=== PATIENT | female | born 1955 | race Caucasian/White ===

== ENCOUNTER 2019-02-27 07:30 | Inpatient (IN) ==
--- NOTE | 2019-02-20 08:18 | EKG Report ---
Test Performed on : 02/20/2019 08:14:47 AM Test Reason : PAT Blood Pressure : / mmHG Vent. Rate : 084 BPM Atrial Rate : 084 BPM P-R Int : 130 ms QRS Dur : 096 ms QT Int : 400 ms P-R-T Axes : 000 162 184 degrees QTc Int : 472 ms Sinus rhythm. with fusion complexes and premature atrial complexes. Right axis deviation ST & T wave abnormality, consider anterolateral ischemia Abnormal ECG No previous ECGs available Confirmed by Vesta Norman MD ([id number]) on 02/20/2019 12:26:01 PM
[2019-02-20 08:36] LABS: URINE SOURCE CLEAN CATCH
[2019-02-20 09:02] LABS: BILIRUBIN URINE NEGATIVE (NEGATIVE); BLOOD URINE NEGATIVE (NEGATIVE); COLOR YELLOW; GLUCOSE URINE NEGATIVE (NEGATIVE); KETONE URINE NEGATIVE (NEGATIVE); PH URINE 8.5; SP GRAVITY URINE 1.015; TURBIDITY URINE CLEAR (CLEAR)
[2019-02-20 09:03] LABS: LEUKOCYTES URINE NEGATIVE (NEGATIVE); NITRITE URINE NEGATIVE (NEGATIVE); PROTEIN URINE NEGATIVE (NEGATIVE); UROBILINOGEN URINE NORMAL (NORMAL)
[2019-02-20 09:05] LABS: UR EPITHELIAL CELLS <10 /HPF (<10); URINE BACTERIA NEGATIVE /HPF; URINE RBC <10 /HPF (<10); URINE WBC <10 /HPF (<10)
[2019-02-20 09:07] LABS: BASO# 0.03 X1000 (0.0-0.2); BASO% 0.3 % (0.0-0.8); EOS# 0.15 X1000 (0.0-0.7); EOS% 1.5 % (0.0-10.0); HEMATOCRIT 44.7 % (37.0-47.0); HEMOGLOBIN 15.4 g/dL (12.0-16.0); IMM GRAN# 0.03 X1000 (0.0-0.04); IMM GRAN% 0.3 % (0.0-0.5); INR 0.92; LYMPH% 26.6 % (20.5-51.1); MCH 30.8 PG (27-31); MCHC 34.5 g/dL (33-37); MCV 89.4 FL (81-99); MONO% 8.9 % (1.7-9.3); MPV 11.3 FL (7.4-10.4); NEUT# 6.35 X1000 (1.4-6.5); NEUT% 62.4 % (42.2-75.2); PLT 348 X1000 (130-400); PROTIME 12.5 Seconds (11.0-16.0); RDW 12.7 % (11.5-14.5); WBC 10.16 X1000 (4.8-10.8)
[2019-02-20 09:08] LABS: PTT 28.3 Seconds (22.3-41.8)
[2019-02-20 09:22] LABS: AGAP 13; BUN 15 mg/dL (8-22); CALCIUM 10.1 mg/dL (8.8-10.2); CHLORIDE 95 mmol/L (98-107); COSMO 282; CREATININE 0.7 mg/dL (0.5-0.9); ESTIMATED GFR > 60; GLUCOSE 105 mg/dL (70-104); POTASSIUM 3.3 mmol/L (3.5-5.1); SODIUM 141 mmol/L (136-145); TCO2 33 mmol/L (25-35)
[2019-02-27] MEDS ORDERED: FENTANYL ONE (07:34)
[2019-02-27] MEDS ORDERED: DIPRIVAN 1% ONE (07:34)
[2019-02-27] MEDS ORDERED: ZOFRAN ONE (07:35)
[2019-02-27] MEDS ORDERED: REGLAN ONE (07:59)
[2019-02-27] MEDS ORDERED: PEPCID ONE (07:59)
[2019-02-27] MEDS ORDERED: COLACE ONE (07:59)
[2019-02-27] MEDS ORDERED: LYRICA ONE (07:59)
[2019-02-27] MEDS ORDERED: LR 1,000 ML ONE (08:00)
[2019-02-27] MEDS ORDERED: KEFZOL 1 GM/D5W 2 GM/100 ML IVPB ONE (08:00)
[2019-02-27] MEDS ORDERED: CELEBREX ONE (08:00)
[2019-02-27] MEDS ORDERED: TRANSDERM-SCOP ONE (08:51)
[2019-02-27] MEDS ORDERED: TORADOL ONE (09:22)
[2019-02-27] MEDS ORDERED: DURAMORPH ONE (09:22)
[2019-02-27] MEDS ORDERED: SENSORCAINE 0.25%/EPI 1:200,000 ONE (09:22)
[2019-02-27] MEDS ORDERED: SODIUM CHLORIDE 0.9% ONE (09:22)
[2019-02-27] MEDS ORDERED: VANCOMYCIN ONE (09:22)
[2019-02-27] MEDS ORDERED: EXPAREL 1.3% ONE (09:23)
[2019-02-27] MEDS ORDERED: DIPRIVAN 1% 500 MG/50 ML BOTTLE ONE (09:32)
[2019-02-27] MEDS ORDERED: VERSED ONE (09:37)
[2019-02-27] MEDS ORDERED: DECADRON ONE (09:55)
[2019-02-27] MEDS ORDERED: OFIRMEV 1000 MG/ISOTONIC SOLN 1,000 MG/100 ML BOTTLE ONE (09:55)
[2019-02-27] MEDS: CYKLOKAPRON 1,000 MG/NS 2,000 MG/200 ML IVPB ONE ×2 (10:00→11:20)
[2019-02-27] MEDS ORDERED: NS 1,000 ML ONE (12:12)
--- NOTE | 2019-02-27 12:29 | Diag Imaging Result Doc PS360 ---
EXAM: KNEE 1-2 VIEWS-LEFT 02/27/2019 HISTORY: post op total knee TECHNIQUE: Left knee two views COMMENT: There is a total knee arthroplasty. There is no evidence of fracture or other acute bony abnormality. IMPRESSION: Postsurgical change. Electronically signed by David Julian 02/27/2019 12:28 PM
[2019-02-27] MEDS: OXY IR ONE ×2 (12:30→12:48)
[2019-02-27] MEDS ORDERED: MORPHINE IV PRN ×3 (13:15)
[2019-02-27] MEDS: NS 1,000 ML IV SCH (13:15)
[2019-02-27] MEDS ORDERED: ZOFRAN PO PRN (13:15)
[2019-02-27] MEDS: TYLENOL PO SCH ×2 (18:18→21:09)
[2019-02-27] MEDS: OXY IR PO PRN ×3 (18:18→23:53)
[2019-02-27] MEDS: KEFZOL 2 GM/D5W 2 GM/50 ML IVPB IV SCH (18:19)
--- NOTE | 2019-02-27 18:29 | OPERATIVE NOTE ---
PROCEDURE DATE: 02/27/2019 PREOPERATIVE DIAGNOSIS: Degenerative osteoarthritis of the left knee. POSTOPERATIVE DIAGNOSIS: Degenerative osteoarthritis of the left knee. PROCEDURE: Left total knee arthroplasty with DePuy Attune size 5, narrow posterior stabilized femur, a size 5 tibial tray, a 10 mm rotating platform tibial insert, and a 35 mm medialized anatomic patella. SURGEON: Abraham Mitchell MD. OPTOMETRIST ASSISTANT: Vale Mason, who was necessary for proper retraction and manipulation of the extremity during the case and improved efficiency. SECOND STEAM SHOVEL OPERATING ENGINEER: Massimo Conner RN. ANESTHESIA: Spinal. INTRAVENOUS FLUIDS: 1000 mL lactated Ringer's. ESTIMATED BLOOD LOSS: 10 mL. TOURNIQUET TIME: 80 minutes at 300 mmHg. COMPLICATIONS: None. INDICATION: The patient is a pleasant, 63-year-old female, with a chronic history of pain and discomfort in her left knee. Radiographic studies revealed underlying degenerative osteoarthritis and the recommendation to proceed with left total knee arthroplasty was offered. Risks and benefits of surgery were explained, including the risks of anesthesia, , bleeding, infection, failure to relieve pain, postoperative stiffness, nerve injury, blood clots, and other imponderables. All questions were answered. The patient wished to proceed with surgery. DETAILS OF OPERATION: The patient was taken to the operating room and underwent spinal anesthesia. After adequate anesthesia was obtained, she was placed supinely on the operating table. The left lower extremity was subsequently prepped and draped in the usual sterile fashion. An Esmarch was used to exsanguinate the left lower extremity and the tourniquet was inflated to 300 mmHg. A standard anterior incision was made with a skin knife. Medial and lateral skin envelopes were developed. Standard medial parapatellar arthrotomy was then performed. Patella fat pad was excised. Superior retractors were then placed. Approximately 1 cm anterior to the PCL insertion, a starting reamer was passed. Intramedullary guide with a distal femoral cutting block was pinned in position. Distal femoral cut was then performed in standard fashion. A sizing block was then placed and measured to size 5. Corresponding pins were placed. A size 5 cutting block was placed in position. Anterior, posterior, and chamfer cuts were then made. Attention was then turned to the proximal tibia, where using the extramedullary guide, the proximal tibia cutting block was pinned in position. Had good alignment confirmed with the alignment sven. The proximal tibia was then resected. The medial and lateral menisci were excised. A curved osteotome was used to remove the posterior osteophytes off the distal femur. A spacer block was placed and had good soft tissue balance in both flexion and extension. Attention was then turned to the proximal tibia, where a size 5 tibial tray appeared to be the correct size. This was pinned in position. This was followed by a central reamer and a fin punch. Attention was then turned to the distal femur, a box cutting guide was pinned in position. Box cut was then performed. A trial femoral component was then placed and 2 lug holes were drilled. A trial tibial insert was then placed and had good soft tissue balance in both flexion and extension. Patella was everted and resected in standard fashion. Patella was resected. A 35 mm patella appeared to be the correct size. The holes were drilled. Trial patella component was then placed and had good patellofemoral tracking. The trial components were then removed. Copious irrigation was then performed with antibiotic pulsatile lavage. Copious irrigation was then performed with antibiotic irrigation while the vancomycin was mixed with cement on the back table. Sequential cementing was then performed, first with the tibial tray, and excess cement was removed with a Perkins, followed by the femoral component and excess cement was removed with a Perkins, followed by trial tibial insert in full extension and axial loading was maintained while cement cured. The patella was cemented in standard fashion. Patella clamp was placed. While cement was curing, Exparel was placed in deep soft tissue as well as the subcutaneous tissue. After cement had cured, peripheral cement was removed with a small osteotome. The 10 mm rotating platform tibial insert appeared to be the correct size. The trial insert was removed. Exparel was placed in deep posterior capsule. The wound was copiously irrigated once again with antibiotic pulsatile lavage. A 10 mm rotating platform tibial insert was then placed, and had good soft tissue balance and good patellofemoral tracking. A 1/8 Hemovac drain was placed and was not sewn in. Copious irrigation was then performed once again with antibiotic pulsatile lavage. Number 1 Vicryl was used to repair the arthrotomy, followed by 2-0 Vicryl to repair the subcutaneous tissue, and skin dawit. Adaptic, sterile 4 x 4's, Webril, cryo unit, and Pal wrap were applied to the left lower extremity. Patient tolerated the procedure well, was transferred to the recovery room in stable condition. cc: Abraham Mitchell MD MTDD
[2019-02-27] MEDS: COLACE PO SCH (21:09)
[2019-02-28] MEDS: NS 1,000 ML IV SCH ×2 (00:45→03:48)
[2019-02-28] MEDS: KEFZOL 2 GM/D5W 2 GM/50 ML IVPB IV SCH (00:46)
[2019-02-28] MEDS: TYLENOL PO SCH ×2 (05:16→10:41)
[2019-02-28] MEDS: OXY IR PO PRN (05:17)
[2019-02-28] MEDS ORDERED: XARELTO PO SCH (06:00)
[2019-02-28 06:08] LABS: HEMATOCRIT 36.9 % (37.0-47.0); HEMOGLOBIN 12.7 g/dL (12.0-16.0)
[2019-02-28 06:30] LABS: AGAP 14; BUN 17 mg/dL (8-22); CALCIUM 8.6 mg/dL (8.8-10.2); CHLORIDE 97 mmol/L (98-107); COSMO 279; CREATININE 0.9 mg/dL (0.5-0.9); ESTIMATED GFR > 60; GLUCOSE 126 mg/dL (70-104); POTASSIUM 3.1 mmol/L (3.5-5.1); SODIUM 138 mmol/L (136-145); TCO2 27 mmol/L (25-35)
[2019-02-28] MEDS ORDERED: KLOR-CON PO ONE (07:01)
--- NOTE | 2019-02-28 07:19 | ORTHOPAEDICS PROGRESS NOTE ---
DATE: 02/28/2019 SUBJECTIVE: The patient is a pleasant, 63-year-old female who is 1 day status post left total knee arthroplasty. She is currently resting comfortably, sitting in a chair. OBJECTIVE: On physical exam, the patient's left lower extremity wound looks good. There are no signs or symptoms of infection. Calf is soft. She has active dorsiflexion and plantar flexion. She is neurovascularly intact distally. Her hemoglobin is 12.7, hematocrit is 36.9. Her potassium is 3.1 and it was 3.3 preoperatively. IMPRESSION: 1. Status post left total knee arthroplasty. 2. Hypokalemia. PLAN: At this point, we will give the patient a potassium supplement for today. We will plan on discharging home later today if she is mobilizing well. She will arrange for home physical therapy. Patient will follow up in the office on 03/12/2019. cc: Abraham Mitchell MD
[2019-02-28 07:45] VITALS: BP 117/66
[2019-02-28] MEDS: COLACE PO SCH (10:42)
[2019-02-28 11:44] LABS: URINE SOURCE CLEAN CATCH
[2019-02-28 11:57] LABS: UR EPITHELIAL CELLS <10 /HPF (<10); URINE BACTERIA NEGATIVE /HPF; URINE RBC <10 /HPF (<10); URINE WBC <10 /HPF (<10)
[2019-02-28 11:58] LABS: BILIRUBIN URINE NEGATIVE (NEGATIVE); BLOOD URINE MODERATE (NEGATIVE); COLOR STRAW; GLUCOSE URINE NEGATIVE (NEGATIVE); KETONE URINE NEGATIVE (NEGATIVE); LEUKOCYTES URINE NEGATIVE (NEGATIVE); NITRITE URINE NEGATIVE (NEGATIVE); PROTEIN URINE NEGATIVE (NEGATIVE); SP GRAVITY URINE 1.006; TURBIDITY URINE CLEAR (CLEAR); UROBILINOGEN URINE NORMAL (NORMAL)
== END 2019-02-28 12:01 | disposition home health service (06) | DRG 470 ==
LOC: 4N 07:30 → OR 07:30 → OBSVTOIN 12:18
PROVIDERS: ADMIT Orthopaedic Surgery Adult Reconstructive Orthopaedic Surgery; ATTEND Orthopaedic Surgery Adult Reconstructive Orthopaedic Surgery